=== PATIENT | female | born 1950 | race Caucasian/White ===

== ENCOUNTER 2018-10-19 11:14 | Outpatient (CLI) | payer MEDICARE ==
--- NOTE | 2018-10-19 14:04 | XRAY Report ---
Reason: NEW ONSET AF Procedure Date: 10/19/2018 Accession Number: [id number] / [id number] Procedure: XR - Chest 2 View X-Ray CPT Code: 94666 FULL RESULT: EXAM: CHEST RADIOGRAPHY EXAM DATE: 10/19/2018 12:03 PM. CLINICAL HISTORY: New onset Atrial fibrillation. COMPARISON: None. TECHNIQUE: 2 views. FINDINGS: Lungs/Pleura: There is a 7 x 4.5 x 3.6 cm right upper perihilar/paramediastinal mass. There is a well-circumscribed 16 mm pulmonary nodule in the right lung base. No confluent airspace opacities. No effusion or extra ventilatory air. Mediastinum: Heart size is within normal limits. Increased density in the pericarinal tissues with possible waist-like thinning of the mainstem bronchi bilaterally on the frontal projection, suspicious for adenopathy. Other: No acute osseous abnormalities. IMPRESSION: 1. 7 cm right upper lobe paramediastinal mass with possible associated adenopathy in the low paratracheal and subcarinal regions suspicious for primary malignancy. 2. 16 mm well-circumscribed nodule right lung base; possible metastasis. RADIA The above findings were discussed with James Garcia by Dr. Basilio Dimas at 13:53 hrs on 10/19/18.
== END 2018-10-19 11:15 | disposition home or self-care (01) ==
LOC: DI 11:14
PROVIDERS: ATTEND Internal Medicine
DX: I48.91 Unspecified atrial fibrillation (principal); R91.8 Other nonspecific abnormal finding of lung field; I51.7 Cardiomegaly; I34.0 Nonrheumatic mitral (valve) insufficiency
CPT/HCPCS: 71046; 93306

== ENCOUNTER 2018-10-30 10:47 | Outpatient (CLI) | payer MEDICARE ==
[2018-10-30] MEDS ORDERED: IOVERSOL 320 100 ML VIAL IVP ONE (11:08)
[2018-10-30] MEDS: IOVERSOL 320 100 ML VIAL IVP ONE (11:22)
--- NOTE | 2018-10-30 14:48 | CT Report ---
Reason: R UPPER LUNG MASS ON CXR Procedure Date: 10/30/2018 Accession Number: [id number] / [id number] Procedure: CT - Chest W/ CPT Code: FULL RESULT: EXAM: CT CHEST EXAM DATE: 10/30/2018 11:32 AM. CLINICAL HISTORY: Right upper lung mass on chest x-ray. COMPARISONS: CHEST 2 VIEW 10/19/2018 11:58 AM. TECHNIQUE: Routine helical CT imaging was performed through the chest. IV contrast: 80 mL Optiray 320. Reconstructions: Coronal and sagittal. In accordance with CT protocol optimization, one or more of the following dose reduction techniques were utilized for this exam: automated exposure control, adjustment of mA and/or KV based on patient size, or use of iterative reconstructive technique. FINDINGS: Lungs/Pleura: There is a 5.1 x 4.8 cm perihilar right upper lobe mass with postobstructive changes. There is no pleural effusion or pneumothorax on either side. Separately, there is a right lower lobe nodule which measures 1.4 x 1.4 cm and demonstrates well-circumscribed gently lobulated margins with a suggestion of intralesional fat. While not definite in the setting of a suspicious right upper lobe mass, this possibly represents a hamartoma. No pleural effusion or pneumothorax. No suspicious left lung nodules. Mediastinum: There is subcarinal lymphadenopathy to 2.6 cm as well as ipsilateral right perihilar lymphadenopathy with individual nodes measuring up to 2.6 cm. The lymphadenopathy appears to be encasing branches of the right pulmonary artery. Suspicious nodes measuring up to 1.4 cm also seen in the superior mediastinum, for example image 15 series 4. No left hilar lymphadenopathy. Bones: Unremarkable. Visualized Abdomen: Unremarkable. Other: None. IMPRESSION: 5.1 cm right upper lobe perihilar mass with ipsilateral hilar and mediastinal lymphadenopathy as described. Recommend separate biopsy versus PET determination of the right lower lobe nodule to guide accurate staging in this setting. RADIA
== END 2018-10-30 10:48 | disposition home or self-care (01) ==
LOC: DI 10:47
PROVIDERS: ATTEND Internal Medicine
DX: R91.8 Other nonspecific abnormal finding of lung field (principal); R59.0 Localized enlarged lymph nodes
CPT/HCPCS: 71260; Q9967

== ENCOUNTER 2018-12-06 11:47 | Outpatient (CLI) | payer MEDICARE ==
[2018-12-06] MEDS ORDERED: GADOBUTROL 10 MMOL/10 ML VIAL ONE (12:33)
[2018-12-06] MEDS ORDERED: GADOBUTROL 10 MMOL/10 ML VIAL IVP ONE ×2 (12:55)
--- NOTE | 2018-12-06 15:15 | MRI Report ---
Reason: MALIGNANT NEOPLASM OF UPPER LOBE OF RIGHT LUNG Procedure Date: 12/06/2018 Accession Number: [id number] / [id number] Procedure: MRI - Brain W/WO CPT Code: FULL RESULT: EXAM: MRI BRAIN WITHOUT AND WITH CONTRAST EXAM DATE: 12/06/2018 01:49 PM. CLINICAL HISTORY: Lung cancer, staging, evaluate for brain metastasis. COMPARISON: None. TECHNIQUE: Multiplanar, multisequence T1-weighted and fluid-sensitive MR sequences of the brain were performed. Sequences optimized for routine evaluation. Other: None. IV Contrast: 9 mL Gadavist. FINDINGS: Solitary 1 cm in diameter peripherally enhancing nodule at the perdue-white junction in the left lateral parietal lobe accompanied by moderate vasogenic edema. No other evidence for acute abnormality or abnormal intracranial enhancement. No acute stroke or hemorrhage. No hydrocephalus or midline shift. Contrast opacification of the major dural venous sinuses is present as expected. The major arterial skull base flow voids are present. Minimal nonspecific paranasal sinus mucosal thickening. Clear mastoids. No focal pathologic appearing marrow signal changes in the skull or clivus. IMPRESSION: Findings are consistent with solitary 1 cm metastatic nodule at the periphery of the lateral left parietal lobe with moderate vasogenic edema. RADIA The call report notification system was initiated by Dr. Tom Morataya at 02:40 PM on 12/06/2018. The above findings were discussed with TIBURCIO Amador by Dr. Tom Morataya at 03:14 PM on 12/06/2018.
== END 2018-12-06 11:48 | disposition home or self-care (01) ==
LOC: DI 11:47
PROVIDERS: ATTEND Surgery
DX: C34.11 Malignant neoplasm of upper lobe, right bronchus or lung (principal); C79.31 Secondary malignant neoplasm of brain
CPT/HCPCS: 70553; A9585

== ENCOUNTER 2019-01-26 13:52 | Outpatient (CLI) | payer MEDICARE ==
--- NOTE | 2019-01-26 16:03 | XRAY Report ---
Reason: ATRIAL FIBRILLATION,STAGE IV ADENOCARCINOMA OF GEORGE Procedure Date: 01/26/2019 Accession Number: [id number] / [id number] Procedure: XR - Chest 2 View X-Ray CPT Code: 88062 FULL RESULT: EXAM: CHEST RADIOGRAPHY EXAM DATE: 01/26/2019 02:00 PM. CLINICAL HISTORY: ATRIAL Fibrillation, stage IV ADENOCARCINOMA OF GEORGE. COMPARISON: CHEST 2 VIEW 10/19/2018 11:58 AM. TECHNIQUE: 2 views. FINDINGS: Lungs/Pleura: Markedly increased size of large right suprahilar mass obscuring the hilum and narrowing the right mainstem bronchus, with dense congestive infiltrate extending to the apex. Right hilar fullness has increased, with congestion in the right lower lung and collapse of the right middle lobe. Previously noted nodule is partially obscured. Small right effusion. No pneumothorax. Numerous small nodules now visible in the left mid and upper lung. No left effusion. Mediastinum: Mild to moderate cardiomegaly, probably unchanged. Upper lobe vessels not distended. Other: None. IMPRESSION: Markedly increased right lung mass with associated changes including right middle lobe collapse, hilar congestion, mediastinal lymphadenopathy, and multiple contralateral metastatic nodules. RADIA
== END 2019-01-26 13:53 | disposition home or self-care (01) ==
LOC: DI 13:52
PROVIDERS: ATTEND Internal Medicine Gastroenterology
DX: C34.91 Malignant neoplasm of unspecified part of right bronchus or lung (principal); I48.91 Unspecified atrial fibrillation
CPT/HCPCS: 71046; 93005

== ENCOUNTER 2019-01-29 10:03 | Inpatient (IN) | payer MEDICARE, MEDICAID ==
--- NOTE | 2019-01-29 09:13 | ANESTHESIA ---
Pre-Anesthesia VS, & Labs <Micheal Varela - Last Filed: 01/29/19 09:11> - NPO >8 hours - Is Patient ?: No <Judy Sheikh - Last Filed: 01/29/19 10:55> - Diagnosis Left femoral hernia (Micheal Varela) Left femoral hernia (Judy Sheikh) - Procedure Lap femoral hernia repair (Micheal Varela) Lap femoral hernia repair (Judy Sheikh) Vital Signs: Temp Pulse Resp BP Pulse Ox 36.8 C 56 L 20 100/74 95 01/29/19 10:14 01/29/19 10:14 01/29/19 10:14 01/29/19 10:14 01/29/19 10:14 Height 5 ft 9 in Body Mass Index 25.1 Home Medications and Allergies <Micheal Varela - Last Filed: 01/29/19 09:11> <Judy Sheikh - Last Filed: 01/29/19 10:55> Metoprolol Tartrate 25 mg PO DAILY 01/23/19 LORazepam [Lorazepam] 0.5 mg PO Q6H PRN 01/25/19 Ondansetron HCl [Zofran] 4 mg PO Q4H PRN 01/25/19 Allergies/Adverse Reactions: Allergies Allergy/AdvReac Type Severity Reaction Status Date / Time No Known Drug Allergies Allergy Verified 01/23/19 13:05 Anes History & Medical History - Medical History Cardiovascular: reports: Atrial fibrillation Pulmonary: reports: Shortness of breath, Other Gastrointestinal: reports: None Urinary: reports: None Musculoskeletal: reports: Fatigue Endocrine/Autoimmune: reports: None Skin: reports: None <Micheal Varela - Last Filed: 01/29/19 09:11> - Anesthetic History Anesthesia Complications: reports: No previous complications (no past GA's) Family history of Anesthesia Complications: Denies Family history of Malignant Hyperthermia: Denies - Medical History Cardiovascular: reports: Atrial fibrillation, Other (Echo 40% EF) Pulmonary: reports: Shortness of breath Gastrointestinal: reports: None Musculoskeletal: reports: Fatigue Smoking Status: Former smoker <Judy Sheikh - Last Filed: 01/29/19 10:55> Exam General: Alert Dental: WNL Mouth Opening: Greater than 4 Fingerbreadths Mallampati classification: II Thyromental Distance: greater than 6 cm Respiratory: Other (diminished on right) Cardiovascular: Normal S1, Normal S2 <Judy Sheikh E - Last Filed: 01/29/19 10:55> Plan Anesthesia Type: MAC Consent for Procedure(s) Verified and Reviewed: Yes Code Status: Attempt Resuscitation ASA classification: 3-Severe systemic disease Is this case an emergency?: No <Judy Sheikh - Last Filed: 01/29/19 10:55>
[~2019-01-29 10:03] MED LIST: LIDOCAINE 1% 50 ML MDV ONE; ceFAZolin 1 GM VIAL ONE
[2019-01-29] MEDS ORDERED: ceFAZolin 2 GM/50 ML 2 GM/50 ML BAG IV ONE (10:13)
[2019-01-29] MEDS ORDERED: LACTATED RINGERS 1,000 ML IV ONE (10:40)
[2019-01-29] MEDS ORDERED: LIDOCAINE 1% 50 ML MDV SUBQ ONE (12:19)
[2019-01-29] MEDS ORDERED: ceFAZolin 1 GM VIAL IR ONE (12:19)
[2019-01-29] MEDS ORDERED: PROPOFOL 200 MG/20 ML VIAL IVP ONE (12:30)
[2019-01-29] MEDS ORDERED: MIDAZOLAM 2 MG/2 ML VIAL IVP ONE (12:30)
[2019-01-29] MEDS ORDERED: ESMOLOL 100 MG/10 ML VIAL IVP ONE (12:30)
[2019-01-29] MEDS ORDERED: fentaNYL 100 MCG/2 ML VIAL IVP ONE (12:30)
[2019-01-29] MEDS ORDERED: MORPHINE 10 MG/ML VIAL IVP ONE (12:30)
[2019-01-29] MEDS ORDERED: LIDOCAINE-MPF 2% 5 ML VIAL IM ONE (12:30)
[2019-01-29] MEDS ORDERED: oxyCODONE 5 MG TABLET PO PRN (13:03)
[2019-01-29] MEDS ORDERED: ACETAMINOPHEN 325 MG TABLET PO PRN (13:03)
[2019-01-29] MEDS ORDERED: ONDANSETRON 4 MG/2 ML VIAL IVP PRN ×2 (13:03→14:03)
[2019-01-29] MEDS ORDERED: IBUPROFEN 600 MG TABLET PO PRN (13:03)
--- NOTE | 2019-01-29 13:58 | MISCELLANEOUS PROVIDER NOTE ---
Miscellaneous Provider Note - - Note: Consultation report PCP and Shannan Requesting physician: Dr. Jorgito Lopez surgery service Reason for consultation: CYNTHIA drummond new onset HPI: This is a pleasant 68-year-old female with a history of metastatic lung adenocarcinoma PD-L1 expression high involving her right upper lung with intrathoracic lymph nodes, brain, neck lymph nodes, bilateral pulmonary nodules, pelvic bones, right inguinal lymph nodes with pericardial effusion with a most recent MRI on 12/06/18 showing a 1 cm nodule at the great white junction left lateral parietal lobe accompanying with moderate vasogenic acidemia, former smoker who quit 12 years ago, here for the placement of a Pleurx
--- NOTE | 2019-01-29 14:07 | XRAY Report ---
Reason: s/p port placement Procedure Date: 01/29/2019 Accession Number: [id number] / [id number] Procedure: XR - Chest 1 View X-Ray CPT Code: 18214 FULL RESULT: EXAM: CHEST RADIOGRAPHY EXAM DATE: 01/29/2019 01:47 PM. CLINICAL HISTORY: S/p port placement. COMPARISON: CHEST 2 VIEW 01/26/2019 1:54 PM. TECHNIQUE: 1 view. FINDINGS: Lungs/Pleura: Continued loss of aeration in the right upper lobe. Increased congestion in the remaining aerated lower lobe. Numerous left lung nodules. No definite effusion. No pneumothorax. Mediastinum: Overall heart size unchanged. Other: Left Port-A-Cath tip in upper SVC about 3.0 cm above the level of ismael. IMPRESSION: Left Port-A-Cath tip in upper SVC. RADIA
--- NOTE | 2019-01-29 14:21 | HISTORY & PHYSICAL EXAMINATION ---
Chief Complaint - Chief Complaint Chief Complaint: RVR atrial fibrillation History of Present Illness - Admitted From Admitted From:: PACU - History Obtained From Records Reviewed: Yes History obtained from: Patient, Dr Lopez and Staff Exam Limitations: None - History of Present Illness HPI Comment/Other: This is a pleasant 68-year-old female with a history of atrial fibrillation, Anxiety/depression, metastatic lung adenocarcinoma PD-L1 expression high involving her right upper lung with intrathoracic lymph nodes, brain, neck lymph nodes, bilateral pulmonary nodules, pelvic bones, right inguinal lymph nodes with pericardial effusion with a most recent MRI on 12/06/18 showing a 1 cm nodule at the jackson-white junction left lateral parietal lobe accompanying with moderate vasogenic edema, former smoker who quit 12 years ago, here for the placement of a Port-A-Cath for chemotherapy. Patient sees Dr. Quiñones who is her primary casting coordinator oncologist and last seen was 01/23/19 who at that point reported productive cough at night with episodes of nausea and insomnia. Patient has been taking her Combivent and guaifenesin with codeine and has had some increased memory loss and disorientation with her hands dysfunction. She has had no mention of seizures or headaches and has a poor appetite with some failure to thrive due to sometimes food not smelling good to her. She had her chemo teaching with Ros[facility]i on 01/11/19. She was scheduled to have Keytruda on 01/23/19. Patient developed RVR A. fib with a history of underlying atrial fibrillation. Prior echocardiogram dated 10/19/18 showed a 40-45% ejection fraction at that time was in atrial fibrillation as well with mild global hypokinesis to the left ventricle contractility with mild AV S and mild MR. Patient was given metoprolol 5 mg with resulting hypotension to 85/55 and heart rate being at 135 bpm and RVR A. fib RR of 23 and breathing at 94% O2 saturation room air. Patient will be admitted to ICU due to her CODE STATUS being full and will be given a digoxin load 50% initial dose as then subsequent doses 25% x2 every 6 hours. Patient takes metoprolol for her chronic atrial fibrillation. Patient has had increased confusion as per and has an appointment to see Dr. Alvarado who was referred by Dr. Quiñones for radiation oncology for possible XRT to the 1 cm nodule at the perdue-white junction left lateral parietal lobe accompanying with moderate vasogenic lobe edema seen on MRI dated 12/06/18. Patient will be admitted to ICU at this time. History - Past Medical History Cardiovascular: reports: Atrial fibrillation, Other (Echo 40% EF) Respiratory: reports: Shortness of breath Endocrine/Autoimmune: reports: None GI: reports: None : reports: None HEENT: reports: None Psych: reports: Depression, Anxiety Musculoskeletal: reports: Fatigue Derm: reports: None MRSA Hx?: No Meds/Allgy - Home Medications Home Medications: Ambulatory Orders Medication Instructions Recorded Confirmed Metoprolol Tartrate 25 mg PO DAILY 01/23/19 01/29/19 LORazepam [Lorazepam] 0.5 mg PO Q6H PRN 01/25/19 01/29/19 Ondansetron HCl [Zofran] 4 mg PO Q4H PRN 01/25/19 01/26/19 Ipratropium/Albuterol [Combivent 1 puffs INH QID 01/29/19 01/29/19 Respimat] oxyCODONE [Roxicodone] 5 mg PO Q6H PRN #5 tablet 01/29/19 - Allergies Allergies/Adverse Reactions: Allergies Allergy/AdvReac Type Severity Reaction Status Date / Time No Known Drug Allergies Allergy Verified 01/23/19 13:05 Review of Systems - All Other Systems All Other Systems: reports: Reviewed and negative Prior Level of Functionality: Pt is independent with home ADLs Exam - Vital Signs Vital Signs: Vital Signs x48h Temp Pulse Resp BP Pulse Ox 01/29/19 14:05 143 H 23 97/74 94 01/29/19 13:55 37.2 C 146 H 21 104/73 95 01/29/19 13:45 135 H 23 85/55 L 94 01/29/19 13:35 37.4 C 126 H 24 103/87 H 96 01/29/19 13:25 141 H 16 95/82 H 95 01/29/19 13:20 37.6 C H 136 H 20 113/75 94 01/29/19 13:15 166 H 20 114/89 H 98 01/29/19 13:05 159 H 26 H 113/71 96 01/29/19 13:03 37.6 C H 169 H 25 H 102/86 H 96 01/29/19 10:14 36.8 C 56 L 20 100/74 95 Sepsis Event Note (H) - Evaluation Current Stage of Sepsis: Ruled out Conclusion/Plan - Problem List (1) Metastatic adenocarcinoma Conclusion/Plan: Patient with metastatic lung adenocarcinoma PD-L1 expression high involving her right upper lung with intrathoracic lymph nodes, brain, neck lymph nodes, bilateral pulmonary nodules, pelvic bones, right inguinal lymph nodes with pericardial effusion with a most recent MRI on 12/06/18 showing a 1 cm nodule at the jackson-white junction left lateral parietal lobe accompanying with moderate vasogenic edema, s/p Initiation of Keytruda with status post Port-A-Cath today, Chest x-ray today shows a left Port-A-Cath tip in the upper SVC about 3.0 cm above the level of the ismael with multiple numerous left lung nodules with no definitive pneumothorax seen; likely will need radiation oncology for which she has an appointment on 02/06/[address] Alvarado as a referral from her primary oncologist Dr. Quiñones. (2) Vasogenic brain edema Conclusion/Plan: Patient with a 1 cm nodule at the perdue white matter junction to the left lateral parietal lobe accompanying with moderate vasogenic neck lobe edema will likely require Decadron to decrease edema and lower seizure threshold. A repeat MRI will likely need to be done however no MRI is available until , 02/01/19. 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 Quiñones's last note. We will treat with Decadron for now. Poor prognosis. (4) Atrial fibrillation with RVR Conclusion/Plan: Patient has underlying chronic atrial fibrillation for which she takes metoprolol however IV Lopressor with blood pressures not tolerating either a beta-karon or likely calcium channel karon will switch to digoxin with a 50% initial dose to be given and then followed by 25% dose x2 spreadout every 6 hours apart. Will then perhaps place back on oral metropolol tomorrow am. We will obtain an echocardiogram as prior ejection fraction is 40-45% however left ventricular dysfunction likely as a result of patient being in atrial fibrillation back on 10/19/18. Patient did have mild global hypokinesis to the left ventricle with mild AVS and MR. CHADSVASc score was calculated at four- points, 4.8 stroke risk with a HAS-BLED of 2 points showing a moderate risk for bleeding and will defer off a and NOAC and placed on aspirin only due to patient's existing brain edema with a 1 cm nodule at the perdue-white junction which would likely precipitate an IC bleed. (5) Failure to thrive syndrome, adult Conclusion/Plan: We will increase caloric intake likely as a result of patient being on Keytruda along with her existing metastatic process. May consider placing on Megace plus or minus Remeron. (6) Encephalopathy Conclusion/Plan: Intermittent confusion as this relates to patient's vasogenic edema seen on MRI with a 1 cm nodule at the left lateral parietal lobe will be on Decadron. Continue following clinically. Patient as at risk for seizures. (7) Pericardial effusion Conclusion/Plan: Patient's echocardiogram shows a 1.5 cm pericardial effusion that may be malignant however this is not tappable and likely would not received per icardiocentesis may require outpatient interventional radiology. This is not a pericardial fat-pad as indicated by atm technician. (8) Hyponatremia Conclusion/Plan: Patient was hypotensive as a result of Lopressor but appears to be euvolemic unclear if this may have SIADH implications due to metastatic spread or process. (9) Leukocytosis Conclusion/Plan: Could be reactive or due to metastatic process. Will start Decadron and this would further confound. Qualifiers: Leukocytosis type: unspecified Qualified Code(s): D72.829 - Elevated white blood cell count, unspecified (10) Advanced care planning/counseling discussion Conclusion/Plan: Patient had advance care planning and counseling discussion with POLST updated as she is a DNR with medical condition and plan of care reviewed along with disease management and trajectory of illness. - Lab Results Lab results reviewed: Yes Robert Bones: 01/29/19 15:55 01/29/19 15:55 - Diagnostic Imaging Results Diagnostic Imaging Results: positive: Final report reviewed (Chest x-ray shows Port-A-Cath plcmt with no pneumothorax numerous pulmonary nodules.) - EKG Results EKG Interpreted Independently: Yes - Other Other Results/Comments: Total critical CARE time: 35 minutes Core Measures - Anticipated LOS I expect patient to be DC'd or transferred within 96 hours.: Yes - Issues Hospital Issues and Management Plan: IV digoxin to be converted to oral digoxin. Decadron, medical management, chemotherapy as an outpatient status post Port-A-Cath placement. - DVT/VTE - Prophylaxis VTE/DVT Device ordered at admit?: Yes
--- NOTE | 2019-01-29 14:34 | PROCEDURE REPORT ---
DATE OF SERVICE: 01/29/2019 Physician: Jorgito Lopez MD PREOPERATIVE DIAGNOSIS: Stage IV lung cancer. POSTOPERATIVE DIAGNOSIS: Stage IV lung cancer. PROCEDURE PERFORMED: Placement of a PowerPort. ANESTHESIA: General LMA by Micheal Varela CRNA SURGEON: Jorgito Lopez MD. ESTIMATED BLOOD LOSS: 20 mL. COMPLICATIONS: None. FINDINGS: [place] was placed in the left infraclavicular fossa. This was a standard profile singl e-lumen PowerPort. The 8-Turkmen catheter distal tip was located in the region of superior vena cava. An infraclavicular approach was used. INDICATIONS: Patient is a 68-year-old woman with a recent diagnosis of stage IV lung cancer. She wa s advised to undergo placement of a PowerPort to facilitate further therapy. TECHNIQUE: After informed consent, patient was taken to the operating room where she was placed unde r general LMA by Micheal Varela CRNA. Preoperative preparation with administration of 2 grams of cefazolin intravenously within an hour of the incision and application of sequential calf compression boots. Her anterior chest wall and neck were prepared with ChloraPrep solution and draped in the [facility] sterile fashion. One percent lidocaine plain was used for local infiltration anesthesia, approxi mately 10 mL was used. Patient was placed in steep Trendelenburg position. Needle and syringe were used to access the left subclavian vein via an infraclavicular approach. A g uidewire was then passed through the needle into the central venous circulation. Guidewire location was confirmed with fluoroscopy. The guidewire tract was then dilated, following which an 8-Turkmen Si lastic catheter was then passed through the breakaway sheath into the central venous circulation and its tip position in the superior vena cava with fluoroscopy. Patient was taken out of Trendelenburg position. An incision was made approximately 3 cm in length extending medially from the catheter exi t site in the left infraclavicular fossa. Hemostasis achieved with electrocautery. A subcutaneous p ocket was created sufficient size to allow placement of the reservoir. After hemostasis was assured, the cavity was irrigated with antibiotic solution containing 1 gram of Ancef per liter. The reservoir, which had been flushed with sterile saline, was then brought onto the field. The cath eter was trimmed to appropriate length. The locking device was placed over the catheter, which was t hen attached to the hub of the reservoir, and the locking device used to securely attach the catheter to the reservoir hub. The reservoir was then placed in the pocket and secured in place with two 4-0 nylon sutures to the pectoral fascia. Care was taken to avoid excessive kinking of the catheter in the subcutaneous pocket. After hemostasis was assured, the wound was irrigated with antibiotic solut ion, following which wound closure was accomplished in layers using continuous 3-0 Vicryl reapproxima ting subcutaneous tissues and 4-0 Monocryl subcuticular skin closure, followed by Dermabond. The reservoir was then accessed percutaneously with a [place] needle and was seen to aspirate blood eas evette and was flushed with sterile saline. Anesthesia was terminated and patient transferred to the re covery room in satisfactory condition. Sponge and needle counts were correct x2 and no drains were u sed. A followup chest x-ray is pending. TD: 01/29/2019 13:27
[2019-01-29] MEDS: LACTATED RINGERS 1,000 ML IV SCH ×2 (15:51→21:28)
[2019-01-29] MEDS: SODIUM CHLORIDE FLUSH 0.9% 10 ML SYRINGE IVP SCH ×2 (15:52→21:29)
[2019-01-29] MEDS ORDERED: DIGOXIN 500 MCG/2 ML AMP IVP SCH (16:00)
[2019-01-29 16:05] LABS: BASOPHILS % (AUTO) 0.5 %; EOSINOPHILS % (AUTO) 10.4 %; HGB - HEMOGLOBIN 11.4 g/dL (12.0-16.0); LYMPHOCYTES % (AUTO) 5.9 %; MEAN CORPUSCULAR HEMOGLOBIN 27.3 pg (27.0-31.0); MEAN CORPUSCULAR HGB CONC 32.9 g/dL (32.0-36.0); MEAN CORPUSCULAR VOLUME 82.9 fL (81.0-99.0); MEAN PLATELET VOLUME 7.6 fL (7.9-10.8); MONOCYTES % (AUTO) 6.3 %; NEUTROPHILS % (AUTO) 76.9 %; PLT - PLATELET COUNT 414 10^3/uL (130-450); RED BLOOD COUNT 4.17 10^6/uL (4.20-5.40); RED CELL DISTRIBUTION WIDTH 14.5 % (12.0-15.0); WHITE BLOOD COUNT 15.5 x10^3/uL (4.8-10.8)
[2019-01-29 16:08] LABS: ABNORMAL LYMPHS % (MANUAL) 0 %
[2019-01-29 16:35] LABS: BAND NEUTROPHILS % (MANUAL) 5 %; BASOPHILS # (MANUAL) 0.2 10^3/uL (0-0.1); BASOPHILS % (MANUAL) 1 %; EOSINOPHILS # (MANUAL) 2.6 10^3/uL (0-0.7); LYMPHOCYTES # (MANUAL) 1.1 10^3/uL (1.5-3.5); LYMPHOCYTES % (MANUAL) 7 %; MONOCYTES # (MANUAL) 0.5 10^3/uL (0.0-1.0); NEUTROPHILS # (MANUAL) 11.2 10^3/uL (1.5-6.6); NEUTROPHILS % (MANUAL) 67 %
[2019-01-29 16:36] LABS: DIFFERENTIAL COMMENT MANUAL DIFFERENTIAL; PLATELET ESTIMATE, MANUAL NORMAL (130-450,000) (NORMAL); PLATELET MORPHOLOGY NORMAL APPEARANCE (NORMAL); RBC MORPHOLOGY (MULTIPLE) NORMAL APPEARANCE (NORMAL)
[2019-01-29 16:55] LABS: ALBUMIN 2.8 g/dL (3.2-5.5); CALCIUM 8.4 mg/dL (8.5-10.3); CREATININE 0.6 mg/dL (0.4-1.0); PHOSPHORUS 3.9 mg/dL (2.5-4.6)
[2019-01-29] MEDS: DEXAMETHASONE 10 MG/ML VIAL IVP SCH (17:02)
[2019-01-29] MEDS: SODIUM CHLORIDE FLUSH 0.9% 10 ML SYRINGE IVP PRN (17:02)
[2019-01-29] MEDS: LORazepam 0.5 MG TABLET SL PRN (17:57)
[2019-01-29] MEDS ORDERED: LEVALBUTEROL 1.25 MG/3 ML NEB INH PRN (19:20)
[2019-01-29] MEDS: FAMOTIDINE 20 MG TABLET PO SCH (20:54)
[2019-01-29] MEDS: DIGOXIN 500 MCG/2 ML AMP IVP SCH (21:28)
[2019-01-29] MEDS: traZODone 50 MG TABLET PO SCH (23:43)
[2019-01-30] MEDS: LORazepam 0.5 MG TABLET SL PRN ×2 (00:59→15:12)
[2019-01-30] MEDS: DIGOXIN 500 MCG/2 ML AMP IVP SCH (04:20)
[2019-01-30] MEDS: SODIUM CHLORIDE FLUSH 0.9% 10 ML SYRINGE IVP PRN (04:21)
[2019-01-30 05:20] LABS: BASOPHILS % (AUTO) 0.2 %; EOSINOPHILS # (AUTO) 0.1 10^3/uL (0.0-0.7); LYMPHOCYTES # (AUTO) 0.5 10^3/uL (1.5-3.5); LYMPHOCYTES % (AUTO) 4.8 %; MEAN CORPUSCULAR HEMOGLOBIN 27.9 pg (27.0-31.0); MEAN CORPUSCULAR HGB CONC 33.7 g/dL (32.0-36.0); MEAN CORPUSCULAR VOLUME 82.8 fL (81.0-99.0); MEAN PLATELET VOLUME 7.6 fL (7.9-10.8); MONOCYTES # (AUTO) 0.2 10^3/uL (0.0-1.0); MONOCYTES % (AUTO) 1.7 %; NEUTROPHILS # (AUTO) 10.5 10^3/uL (1.5-6.6); NEUTROPHILS % (AUTO) 92.3 %; PLT - PLATELET COUNT 370 10^3/uL (130-450); RED BLOOD COUNT 3.95 10^6/uL (4.20-5.40); WHITE BLOOD COUNT 11.4 x10^3/uL (4.8-10.8)
[2019-01-30 05:32] LABS: ALBUMIN 2.6 g/dL (3.2-5.5); ALBUMIN/GLOBULIN RATIO 0.7 (1.0-2.2); BILIRUBIN,TOTAL 0.4 mg/dL (0.2-1.0); CALCIUM 8.4 mg/dL (8.5-10.3); CREATININE 0.4 mg/dL (0.4-1.0); TOTAL PROTEIN 6.1 g/dL (6.7-8.2)
[2019-01-30] MEDS: LACTATED RINGERS 1,000 ML IV SCH (06:52)
[2019-01-30] MEDS: FAMOTIDINE 20 MG TABLET PO SCH ×2 (08:55→20:33)
[2019-01-30] MEDS: SODIUM CHLORIDE FLUSH 0.9% 10 ML SYRINGE IVP SCH ×3 (08:55→18:18)
[2019-01-30] MEDS: ASPIRIN CHEW 81 MG TABLET PO SCH (08:55)
[2019-01-30] MEDS: DEXAMETHASONE 10 MG/ML VIAL IVP SCH (08:56)
[2019-01-30] MEDS ORDERED: METOPROLOL TARTRATE 25 MG TABLET PO SCH ×2 (09:00→21:00)
[2019-01-30] MEDS ORDERED: DIGOXIN 125 MCG TABLET PO SCH (09:00)
[2019-01-30] MEDS: FUROSEMIDE 20 MG/2 ML VIAL IVP SCH (10:33)
--- NOTE | 2019-01-30 12:26 | MISCELLANEOUS PROVIDER NOTE ---
Miscellaneous Provider Note - - Note: Subjective: Patient feels great and denies palpitations chest pain nausea vomiting headaches dizziness syncopal events GI or symptoms. Patient says that she is felt better today than in most days. Objective: Vital signs are Hemodynamically stable heart rate variable from 90- 132 bpm. Afebrile. Respiratory rate 28. 94% O2 saturation on room air. Blood pressure 124/87. General: Patient alert and oriented x3 in no acute respiratory distress speaking full sentences. Malnourished. Thin and frail. Cooperative and pleasant. HEENT: Pupils equal round react light and accommodation extraocular muscles are bilateral intact. NCAT. No ptosis. No buccal lesions. Oropharynx clear. Neck: No JVD no bruits no lymphadenopathy. No thyromegaly. CV/lungs: Irregular rate and rhythm. No murmurs gallops clicks or rubs. CT BL. Abdomen: Soft nontender nondistended positive bowel sounds all quadrants no HSM. No bruits. No masses. Next para if extremities/skin: No edema, clubbing, or cyanosis. 2+ pulses dorsalis pedis bilaterally. Neuro: Grossly intact Labs: Reviewed Imaging studies: Reviewed Assessment/plan: (1) Metastatic adenocarcinoma Conclusion/Plan: Patient with metastatic lung adenocarcinoma PD-L1 expression high involving her right upper lung with intrathoracic lymph nodes, brain, neck lymph nodes, bilateral pulmonary nodules, pelvic bones, right inguinal lymph nodes with pericardial effusion with a most recent MRI on 12/06/18 showing a 1 cm nodule at the jackson-white junction left lateral parietal lobe accompanying with moderate vasogenic edema, s/p Initiation of Keytruda with status post Port-A-Cath On 01/29, Chest x-ray shows a left Port-A-Cath tip in the upper SVC about 3.0 cm above the level of the ismael with multiple numerous left lung nodules with no definitive pneumothorax seen; likely will need radiation oncology for which she has an appointment on 02/06/[address] Alvarado as a referral from her primary oncologist Dr. Quiñones. Patient likely will continue with palliative chemoradiation as an outpatient. Currently no signs and symptoms of infection or neutropenic fever. Patient's pericardial effusion may be malignant however no hemodynamic instability or pericardial tamponade which would not require an urgent pericardiocentesis however this may be tapped as an outpatient by interventional radiology if need be. (2) Vasogenic brain edema Conclusion/Plan: Patient with a 1 cm nodule at the perdue white matter junction to the left lateral parietal lobe accompanying with moderate vasogenic edema. We will continue with Decadron to decrease edema and lower seizure threshold. A repeat MRI will likely need to be done however no MRI is available until , 02/01/19. Patient at high risk for seizures. 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 Quiñones's last note. We will treat with Decadron for now. Poor prognosis. (4) Atrial fibrillation with RVR Conclusion/Plan: Patient has improved RVR A. fib with variable rates now after being giving a digoxin load. Will continue with digoxin at 250 mcg p.o. daily. However after an attempt to start metoprolol twice daily at 25 mg patient continues to be in RVR A. fib and has not responded well to Cardizem 30 mg p.o. 1 dose, will start diltiazem drip with parameters. Patient is not a candidate for anticoagulation due to Bleeding risk. CHADSVASc score was calculated at four-points, 4.8 stroke risk with a HAS-BLED of 2 points showing a moderate risk for bleeding and will defer off a and NOAC and placed on aspirin only due to patient's existing brain edema with a 1 cm nodule at the perdue-white junction which would likely precipitate an IC bleed. Patient's echocardiogram which was read as an ejection fraction of 35-40% slightly lower from 40-45% on last 2D echo dated 10/19/18. There is a new finding of a 1.2 cm pericardial effusion with no evidence of cardiac tamponade. No motion wall abnormality seen. Patient did have mild global hypokinesis in the left ventricle with mild AVS and MR. (5) Failure to thrive syndrome, adult Conclusion/Plan: We will increase caloric intake likely as a result of patient being on Keytruda along with her existing metastatic process. Patient is eating 75% of meals and will defer off any appetite stimulating agents. (6) Patient meets moderate to severe malnutrition criteria (present on admission). Conclusion/plan: We will continue to optimize medical management as well as nutritional managementWe will continue to optimize medical management as well as nutritional management. We will continue to optimize medical management as well as nutritional management (7) Confusion secondary to brain metastases with associated vasogenic edema Conclusion/Plan: Intermittent confusion as this relates to patient's vasogenic edema seen on MRI with a 1 cm nodule at the left lateral parietal lobe will be on Decadron. Continue following clinically. Patient as at risk for seizures. Patient has improved discoordination of hand as well. (8) Pericardial effusion Conclusion/Plan: Patient's echocardiogram shows a 1.2 cm pericardial effusion that may be malignant however this is not tappable and likely would not received pericardiocentesis. Indications for diagnostic percutaneous CT-guided or echo guided pericardiocentesis would be if moderate to large effusion was symptomatic and there was a Cardiac Tampanode (Either clinically {i.e Hypotension, tachycardia, dyspnea or pulses paradoxus} or echocardiogram confirmed) with associated hemodynamic instability. Patient currently is hemodynamically stable however if this effusion which is new increases over time i.e >20mm then patient may require outpatient interventional radiology. This is not a pericardial fat- pad as indicated by principal technical writer. (9) Leukocytosis Conclusion/Plan: This is improved likely reactive however will likely be altered by steroids. (10) Anxiety. Conclusion/plan: Patient on Lorazepam which will be up titrated to 1 mg sublingual every 6 hours as needed as patient will be on steroids which may cause increased anxiety and insomnia (11) Advanced care planning/counseling discussion Conclusion/Plan: Patient had advance care planning and counseling discussion with POL updated as she is a DNR with medical condition and plan of care reviewed along with disease management and trajectory of illness. Patient is going to be in palliative chemoradiation to continue as outpatient as well.
[2019-01-30] MEDS ORDERED: DIGOXIN 125 MCG TABLET PO ONE (13:00)
[2019-01-30] MEDS ORDERED: diltiaZEM 30 MG TABLET PO SCH (17:00)
[2019-01-30] MEDS ORDERED: METOPROLOL 5 MG/5 ML VIAL IVP PRN (17:48)
[2019-01-30] MEDS ORDERED: diltiaZEM INJ 125 MG in DEXTROSE 5% 100 ML IV SCH (18:00)
[2019-01-30] MEDS ORDERED: LORazepam 1 MG TABLET SL PRN (18:07)
[2019-01-30] MEDS ORDERED: diltiaZEM INJ 5 MG/ML VIAL IVP ONE (18:26)
[2019-01-30] MEDS ORDERED: diltiaZEM INJ 5 MG/ML VIAL ONE (18:35)
[2019-01-30] MEDS: traZODone 50 MG TABLET PO SCH (20:33)
[2019-01-30] MEDS ORDERED: traZODone 50 MG TABLET PO SCH ×2 (21:00→22:45)
[2019-01-31] MEDS: SODIUM CHLORIDE FLUSH 0.9% 10 ML SYRINGE IVP SCH ×3 (01:31→08:30)
[2019-01-31 05:41] LABS: BASOPHILS % (AUTO) 0.2 %; EOSINOPHILS # (AUTO) 0.9 10^3/uL (0.0-0.7); EOSINOPHILS % (AUTO) 5.6 %; HGB - HEMOGLOBIN 11.7 g/dL (12.0-16.0); LYMPHOCYTES # (AUTO) 0.8 10^3/uL (1.5-3.5); LYMPHOCYTES % (AUTO) 5.1 %; MEAN CORPUSCULAR HEMOGLOBIN 27.2 pg (27.0-31.0); MEAN CORPUSCULAR VOLUME 84.8 fL (81.0-99.0); MEAN PLATELET VOLUME 7.7 fL (7.9-10.8); MONOCYTES # (AUTO) 0.8 10^3/uL (0.0-1.0); MONOCYTES % (AUTO) 5.3 %; NEUTROPHILS # (AUTO) 12.8 10^3/uL (1.5-6.6); NEUTROPHILS % (AUTO) 83.8 %; PLT - PLATELET COUNT 406 10^3/uL (130-450); RED CELL DISTRIBUTION WIDTH 15.1 % (12.0-15.0); WHITE BLOOD COUNT 15.3 x10^3/uL (4.8-10.8)
[2019-01-31 05:50] LABS: MAGNESIUM 2.2 mg/dL (1.7-2.8); PHOSPHORUS 3.8 mg/dL (2.5-4.6)
[2019-01-31] MEDS: ASPIRIN CHEW 81 MG TABLET PO SCH (08:20)
[2019-01-31] MEDS: FAMOTIDINE 20 MG TABLET PO SCH (08:21)
[2019-01-31] MEDS: DEXAMETHASONE 10 MG/ML VIAL IVP SCH (08:22)
[2019-01-31] MEDS: FUROSEMIDE 20 MG/2 ML VIAL IVP SCH (08:26)
[2019-01-31] MEDS ORDERED: DIGOXIN 125 MCG TABLET PO SCH (09:00)
[2019-01-31] MEDS ORDERED: POLYETHYLENE GLYCOL 3350 17 GM PACKET PO SCH (09:00)
[2019-01-31] MEDS ORDERED: diltiaZEM CD 180 MG CAPSULE PO SCH (09:00)
[2019-01-31 11:07] VITALS: BP 127/83
[2019-01-31] MEDS ORDERED: WHEAT DEXTRIN POWDER PACKET PO PRN (11:07)
--- NOTE | 2019-01-31 11:15 | Discharge Plan ---
Discharge Plan Disposition: 01 Home, Self Care Condition: Good Prescriptions: LORazepam [Ativan] 1 mg SL Q4HR PRN #60 tablet PRN Reason: anxiety/insomnia Aspirin Chewable [St Denis Aspirin] 81 mg PO DAILY #30 tablet Dexamethasone [Decadron] 4 mg PO 0800 #30 tablet Digoxin 250 mcg PO DAILY #30 tablet diltiaZEM CD [Cardizem Cd] 180 mg PO BID #60 capsule oxyCODONE [Roxicodone] 5 mg PO Q6H PRN #5 tablet PRN Reason: Pain Diet: Regular Activity Restrictions: Activity as Tolerated Shower Restrictions: No Driving Restrictions: Yes Instruction Topics: Digoxin, Atrial Fibrillation Additional Instructions or Follow Up instructions: Patient will need to follow-up with cardiology Dr. Goldman as a new appointment to evaluate for her asymptomatic variable RVR A. fib which was refractory to pharmacological cardioversion. Follow-up with Dr. Goldman as a new appointment to evaluate for variable asymptomatic RVR A. fib. Instructed to call [phone]. scheduled on 02/22/19. 930am No Smoking: If you smoke, Please STOP! Call for help. Follow-up with: Peggy Campbell MD [Primary Care Provider] - 2 Weeks (Follow-up with PCP in 1-2 weeks) Castillo Goldman MD [Provider Admit Priv/Credential] - 02/22/19 9:30 am (Follow-up with Dr. Goldman as a new appointment to evaluate for variable asymptomatic RVR A. fib. Instructed to call [phone]. scheduled on 02/22/19. 930am)
--- NOTE | 2019-01-31 11:22 | DISCHARGE SUMMARY ---
Discharge Summary Admit Date: 01/29/19 Discharge Date: 01/31/19 Discharging Provider: Dr. Richey Primary Care Provider: Juliann Campbell Code Status: Do Not Attempt Resuscitation Condition at Discharge: Good Discharge Disposition: 01 Home, Self Care - DIAGNOSES Admission Diagnoses: (1) Metastatic adenocarcinoma (2) Vasogenic brain edema (3) Brain metastasis (4) Atrial fibrillation with RVR (5) Failure to thrive syndrome, adult (6) Encephalopathy (7) Pericardial effusion (8) Hyponatremia (9) Leukocytosis (10) Advanced care planning/counseling discussion Discharge Diagnoses with Status of Each Condition: (1) Metastatic adenocarcinoma; Stage IV metastatic adenocarcinoma of the lung, ongoing palliative chemotherapy with eventual radiation. Poor prognosis (2) Vasogenic brain edema, Stable (3) Brain metastasis, Progressive and stable (4) Variable Atrial fibrillation with RVR, Refractory to pharmacological cardio version (5) Failure to thrive syndrome, adult (6) Patient meets moderate to severe malnutrition criteria (present on admission). (7) Confusion secondary to brain metastases with associated vasogenic edema (8) Pericardial effusion (9) Leukocytosis Secondary to steroids (10) Anxiety. (11) Advanced care planning/counseling discussion - HPI History of Present Illness: This is a pleasant 68-year-old female with a history of atrial fibrillation, Anxiety/depression, metastatic lung adenocarcinoma PD-L1 expression high involving her right upper lung with intrathoracic lymph nodes, brain, neck lymph nodes, bilateral pulmonary nodules, pelvic bones, right inguinal lymph nodes with pericardial effusion with a most recent MRI on 12/06/18 showing a 1 cm nodule at the jackson-white junction left lateral parietal lobe accompanying with moderate vasogenic edema, former smoker who quit 12 years ago, here for the placement of a Port-A-Cath for chemotherapy. Patient sees Dr. Quiñones who is her primary molded goods operator oncologist and last seen was 01/23/19 who at that point reported productive cough at night with episodes of nausea and insomnia. Patient has been taking her Combivent and guaifenesin with codeine and has had some increased memory loss and disorientation with her hands dysfunction. She has had no mention of seizures or headaches and has a poor appetite with some failure to thrive due to sometimes food not smelling good to her. She had her chemo teaching with Rosalie on 01/11/19. She was scheduled to have Keytruda on 01/23/19. Patient developed RVR A. fib with a history of underlying atrial fibrillation. Prior echocardiogram dated 10/19/18 showed a 40-45% ejection fraction at that time was in atrial fibrillation as well with mild global hypokinesis to the left ventricle contractility with mild AV S and mild MR. Patient was given metoprolol 5 mg with resulting hypotension to 85/55 and heart rate being at 135 bpm and RVR A. fib RR of 23 and breathing at 94% O2 saturation room air. Patient will be admitted to ICU due to her CODE STATUS being full and will be given a digoxin load 50% initial dose as then subsequent doses 25% x2 every 6 hours. Patient takes metoprolol for her chronic atrial fibrillation. Patient has had increased confusion as per and has an appointment to see Dr. Alvarado who was referred by Dr. Quiñones for radiation oncology for possible XRT to the 1 cm nodule at the perdue-white junction left lateral parietal lobe accompanying with moderate vasogenic lobe edema seen on MRI dated 12/06/18. Patient will be admitted to ICU at this time. - HOSPITAL COURSE Hospital Course: Patient was admitted for RVR atrial fibrillation which was asymptomatic and after Port-A-Cath placement general surgeon Dr. Jorgito Lopez had recommended patient be admitted for pharmacological cardioversion of patient's underlying chronic atrial fibrillation which was now in RVR A. fib in the 120s 130s. Patient denied shortness of breath palpitations syncopal events dizziness or lightheadedness. Patient was otherwise hemodynamically stable. Chest x-ray confirmed Port-A-Cath placement with no pneumothorax and no evidence of pulmonary edema noted. Patient with a prior echocardiogram dated 10/19/18 showed an ejection fraction of 40-45% and at that time patient had atrial fibrillation with mild global hypokinesis to the left ventricle contractility with mild AVS and mild MR. On this admission echocardiogram did show ejection fraction of 35-40% slightly decreased however new finding of a 1.2 cm pericardial effusion was noted. Patient's CODE STATUS was addressed with advance care planning education and counseling and was deemed to be a DNR with limited interventions. Patient was resumed on home medications however diltiazem drip was started for rate and rhythm control however she was refractory to pharmacological cardioversion despite oral metoprolol as well as oral diltiazem. Variable RVR A. fib with still noted however to a lesser degree as patient had heart rate ranging from 70s up to the 90s at rest and on exertion patient would go to 120s-130s while coughing or being on a bedpan. Patient denied fevers chills nausea vomiting abdominal pain or maculopapular rashes. Patient does have existing stage IV adenocarcinoma Of right upper lung with metastatic spread to Intrathoracic lymph nodes, brain (1 cm nodule at the jackson- white matter junction left lateral parietal lobe accompanying with moderate vasogenic edema), bilateral pulmonary nodules, pelvic bones, right inguinal lymph nodes, and with pericardial effusion with most recent MRI on 12/06/18 showing vasogenic edema. Patient's TSH was 1.22 magnesium phosphorus and potassium were all normal. Patient received a digoxin load and continued with a maintenance dose of 250 mcg p.o. daily. Patient had a calculated ChadsVasc score of 4 points and a HAS BLED calculated to be two-point with moderate bleeding therefore not a candidate for anticoagulation due to underlying vasogenic edema with a 1 cm nodule at the great white junction of left lateral parietal lobe. Unfortunately patient was unable to be pharmacologically cardioverted either with oral or IV formulated drugs with calcium channel blockers or beta blockade. Patient does have thromboembolic risks and therefore was placed on aspirin 81 mg p.o. daily only. Patient is completely asymptomatic with no palpitations and again no other neurological deficits, syncope, or dizziness. Patient will be referred to outpatient cardiology with Dr. Goldman for further evaluation management and treatment. Due to patient's risk of vasogenic edema with associated seizures patient will be given an Rx for Decadron as well as Ativan sublingual. In addition patient will be given diltiazem 180 mg to be up titrated to twice daily along with digoxin. Follow-up with Dr. Goldman as a new appointment to evaluate for variable asymptomatic RVR A. fib. Instructed to call [phone]. scheduled on 02/22/19. 930am - ALLERGIES Allergies/Adverse Reactions: Allergies Allergy/AdvReac Type Severity Reaction Status Date / Time No Known Drug Allergies Allergy Verified 01/23/19 13:05 - MEDICATIONS Home Medications: Ambulatory Orders Medication Instructions Recorded Confirmed Ondansetron HCl [Zofran] 4 mg PO Q4H PRN 01/25/19 01/26/19 Ipratropium/Albuterol [Combivent 1 puffs INH QID 01/29/19 01/29/19 Respimat] oxyCODONE [Roxicodone] 5 mg PO Q6H PRN #5 tablet 01/29/19 Aspirin Chewable [St Denis 81 mg PO DAILY #30 tablet 01/31/19 Aspirin] Dexamethasone [Decadron] 4 mg PO 0800 #30 tablet 01/31/19 Digoxin 250 mcg PO DAILY #30 tablet 01/31/19 LORazepam [Ativan] 1 mg SL Q4HR PRN #60 tablet 01/31/19 diltiaZEM CD [Cardizem Cd] 180 mg PO BID #60 capsule 01/31/19 - PHYSICAL EXAM AT DISCHARGE General Appearance: positive: No acute distress, Alert, Anxious Eyes Bilateral: positive: Normal inspection, PERRL, EOMI ENT: positive: ENT inspection nml, Pharynx nml, No signs of dehydration Neck: positive: Nml inspection, Thyroid nml, No JVD, Trachea midline. negative: Thyromegaly Respiratory: positive: Chest non-tender, No respiratory distress, Breath sounds nml Cardiovascular: positive: No murmur, No gallop, Irregularly irregular Peripheral Pulses: positive: 2+ Abdomen: positive: Non-tender, No organomegaly, Nml bowel sounds, No distention. negative: Tenderness Skin: positive: Color nml, No rash, Warm Extremities: positive: Non-tender, Full ROM, Nml appearance Neurologic/Psychiatric: positive: Oriented x3, CN's nml (2-12) - LABS Result Diagrams: 01/31/19 05:00 01/30/19 05:02 - SEPSIS Current Stage of Sepsis: Ruled out - QUALITY (Female Hip Fx Only) Was patient sent home on osteoporosis medication?: No - FOLLOW UP Follow Up: PCP to follow-up in 1-2 weeks - TIME SPENT Time Spent in Discharge (Minutes): 35
[2019-01-31] MEDS ORDERED: MULTIVITAMIN W/MINERALS TABLET PO SCH (12:00)
== END 2019-01-31 12:35 | disposition home or self-care (01) | DRG 308 ==
LOC: SDS 10:03 → ICU 14:03
PROVIDERS: ADMIT Family Medicine; ATTEND Internal Medicine Gastroenterology
PROC: B5181ZA Fluoroscopy of Superior Vena Cava using Low Osmolar Contrast, Guidance (ICD-10-PCS; 2019-01-29)
PROC: 02HV33Z Insertion of Infusion Device into Superior Vena Cava, Percutaneous Approach (ICD-10-PCS; 2019-01-29)
PROC: B5181ZA Fluoroscopy of Superior Vena Cava using Low Osmolar Contrast, Guidance (ICD-10-PCS; 2019-01-29)
PROC: 02HV33Z Insertion of Infusion Device into Superior Vena Cava, Percutaneous Approach (ICD-10-PCS; principal; 2019-01-29 11:30)
DX: I48.2 Chronic atrial fibrillation (principal); G93.6 Cerebral edema; C34.90 Malignant neoplasm of unspecified part of unspecified bronchus or lung; C79.31 Secondary malignant neoplasm of brain; C77.0 Secondary and unspecified malignant neoplasm of lymph nodes of head, face and neck; C77.4 Secondary and unspecified malignant neoplasm of inguinal and lower limb lymph nodes; C77.1 Secondary and unspecified malignant neoplasm of intrathoracic lymph nodes; C79.51 Secondary malignant neoplasm of bone; E44.0 Moderate protein-calorie malnutrition; I31.3 Pericardial effusion (noninflammatory); G93.40 Encephalopathy, unspecified; E87.1 Hypo-osmolality and hyponatremia; Z66 Do not resuscitate; Z92.21 Personal history of antineoplastic chemotherapy; R62.7 Adult failure to thrive; Z68.22 Body mass index [BMI] 22.0-22.9, adult; R41.0 Disorientation, unspecified; D72.829 Elevated white blood cell count, unspecified; T38.0X5A Adverse effect of glucocorticoids and synthetic analogues, initial encounter; F41.9 Anxiety disorder, unspecified; F32.9 Major depressive disorder, single episode, unspecified; Z87.891 Personal history of nicotine dependence
CPT/HCPCS: 36415; 36571; 71045; 77001; 80053; 80069; 82140; 83735; 84100; 84443; 85025; 87150; 93005; 93306; A9270; C1788; J0690; J7120; J8499

== ENCOUNTER 2019-02-01 14:50 | Outpatient (CLI) | payer MEDICARE, MEDICAID ==
[2019-02-01] MEDS ORDERED: GADOBUTROL 10 MMOL/10 ML VIAL IVP ONE ×2 (16:27)
--- NOTE | 2019-02-02 11:42 | MRI Report ---
Reason: METASTATIC LUNG CANCER Procedure Date: 02/01/2019 Accession Number: [id number] / [id number] Procedure: MRI - Brain W/WO CPT Code: FULL RESULT: EXAM: MRI BRAIN WITHOUT AND WITH CONTRAST EXAM DATE: 02/01/2019 04:30 PM. CLINICAL HISTORY: Metastatic lung cancer. COMPARISON: BRAIN W/WO 12/06/2018 12:35 PM. TECHNIQUE: Multiplanar, multisequence T1-weighted and fluid-sensitive MR sequences of the brain were performed. Sequences optimized for routine evaluation. Other: None. IV Contrast: 8 mL of Gadavist. FINDINGS: Brain Volume: There is mild generalized cerebral volume loss, in keeping with the patient's age. Parenchyma: No diffusion restriction is identified to suggest acute or recent infarct. The susceptibility sensitive sequence demonstrates no evidence of acute or chronic hemorrhage. The enhancing intra-axial mass in the left parietal lobe has increased in size now measuring 13 x 16 mm, previously 10 x 9 mm. There is mildly increased surrounding vasogenic edema with greater mass-effect and narrowing of the atrium of the left lateral ventricle. No new intracranial metastases have developed. Ventricles/Cisterns: The ventricles remain midline without evidence of hydrocephalus. No abnormal extra-axial fluid collection or hemorrhage. Orbits: Symmetric and unremarkable. Sella Turcica: The pituitary gland, cavernous sinuses, suprasellar cistern and optic chiasm are unremarkable. IAC: Symmetric and unremarkable. Vasculature: Normal signal flow void is seen in the major arterial structures at the skull base. The dural sinuses are patent and enhance normally. Sinuses: No acute sinus disease. Bones: No focal pathologic appearing marrow signal changes. IMPRESSION: 1. Increased size of the known solitary metastasis in the left parietal lobe compared to the brain MRI from 12/06/2018 now measuring 13 x 16 mm, previously 10 x 9 mm. There is mild increased surrounding vasogenic edema and mass-effect as well. 2. However, no midline shift or hydrocephalus has developed. 3. No new intracranial metastasis is seen. RADIA
== END 2019-02-01 14:51 | disposition home or self-care (01) ==
LOC: DI 14:50
PROVIDERS: ATTEND Internal Medicine Hematology & Oncology
DX: C34.11 Malignant neoplasm of upper lobe, right bronchus or lung (principal); C79.31 Secondary malignant neoplasm of brain
CPT/HCPCS: 70553; A9585

== ENCOUNTER 2019-02-13 16:52 | Outpatient (CLI) | payer MEDICARE, MEDICAID ==
--- NOTE | 2019-02-14 08:00 | XRAY Report ---
Reason: LUNG CA,RIGHT HIP/FEMUR PAIN,BONE MET Procedure Date: 02/13/2019 Accession Number: [id number] / [id number] Procedure: XR - Hip w/Pelvis 2-3V RT CPT Code: FULL RESULT: EXAM: RIGHT HIP RADIOGRAPHY EXAM DATE: 02/13/2019 05:28 PM. CLINICAL HISTORY: Right hip pain. History of lung cancer. COMPARISON: None. TECHNIQUE: 2 views. FINDINGS: Bones: No fracture or bone lesion is identified. Joints: Mild degenerative changes are seen in the hip joints bilaterally. Alignment is preserved. Soft Tissues: Normal. No soft tissue swelling. 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 No fracture or bone lesion identified. RADIA
--- NOTE | 2019-02-14 08:00 | XRAY Report ---
Reason: Lung CA, Right Hip/Femur Pain, Bone mets Procedure Date: 02/13/2019 Accession Number: [id number] / [id number] Procedure: XR - Femur 2V RT CPT Code: FULL RESULT: EXAM: RIGHT FEMUR RADIOGRAPHY EXAM DATE: 02/13/2019 05:28 PM. CLINICAL HISTORY: Right leg pain. COMPARISON: None. TECHNIQUE: 2 views. FINDINGS: Bones: No fracture or bone lesion is identified. Joints: Mild degenerative changes are seen in the hip and to a lesser degree in the knee. Alignment is preserved. Soft Tissues: Normal. No soft tissue swelling. IMPRESSION: No fracture or bone lesion identified. RADIA
== END 2019-02-13 16:53 | disposition home or self-care (01) ==
LOC: DI 16:52
PROVIDERS: ATTEND Nurse Practitioner Adult Health
DX: C34.90 Malignant neoplasm of unspecified part of unspecified bronchus or lung (principal); C79.51 Secondary malignant neoplasm of bone; M16.0 Bilateral primary osteoarthritis of hip

== ENCOUNTER 2019-03-20 13:02 | Outpatient (CLI) | payer MEDICARE, MEDICAID | END 2019-03-20 13:03 | disposition home or self-care (01) | LOC: DI 13:02 | PROVIDERS: ATTEND Internal Medicine Cardiovascular Disease | DX: I50.9 Heart failure, unspecified (principal); I48.91 Unspecified atrial fibrillation | CPT/HCPCS: 93306 ==

== ENCOUNTER 2019-03-20 13:03 | Outpatient (CLI) | payer MEDICARE, MEDICAID ==
[2019-03-20] MEDS ORDERED: BUFFERED LIDOCAINE 10 ML SYRINGE ONE (14:27)
== END 2019-03-20 13:04 | disposition home or self-care (01) ==
LOC: DI 13:03
PROVIDERS: ATTEND Nurse Practitioner Adult Health
DX: Z53.9 Procedure and treatment not carried out, unspecified reason (principal)

== ENCOUNTER 2019-03-23 14:22 | Inpatient (IN) | payer MEDICARE, MEDICAID ==
--- NOTE | 2019-03-23 15:03 | XRAY Report ---
Reason: sob Procedure Date: 03/23/2019 Accession Number: [id number] / [id number] Procedure: XR - Chest 1 View X-Ray CPT Code: 59523 FULL RESULT: EXAM: CHEST RADIOGRAPHY EXAM DATE: 03/23/2019 02:49 PM. CLINICAL HISTORY: Sob. COMPARISON: CHEST 1 VIEW 01/29/2019 1:36 PM CHEST W/ 03/13/2019 1:20 PM. TECHNIQUE: 1 view. FINDINGS: Cardiac leads overlie the chest. Tunneled left subclavian central venous Port-A-Cath appears to terminate near the confluence of the brachiocephalic veins. There is complete opacification of the right hemithorax. Visualized heart size is normal. The left lung pulmonary nodules described on the prior CT are faintly visible. No left-sided pleural effusion or pneumothorax visualized. IMPRESSION: Complete opacification of the right hemithorax, likely representing the combination of right lung atelectasis and pleural fluid recently described on the CT chest from 03/13/2019. Faintly visible left lung pulmonary nodules likely representing metastatic disease. RADIA
--- NOTE | 2019-03-23 15:17 | ED Physician Documentation ---
PD HPI DYSPNEA - Stated complaint Stated Complaint: SOB/CHEST PX - Chief complaint Chief Complaint: Resp - History obtained from History obtained from: Patient, Family - History of Present Illness Timing - onset: How many weeks ago (3) Timing - onset during: Rest Timing - duration: Weeks (3) Timing - details: Gradual onset, Still present Inciting event(s): Other (advancing lung cancer) Improved by: O2 Worsened by: Exertion, Laying flat, Coughing Associated symptoms: Cough, Hemoptysis, Bilateral edema Similar symptoms before: Diagnosis (stage IV lung CA) Recently seen: Clinic, Other - Additional information Additional information: 68-year-old female with 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 She has been treated for atrial fibrillation with rapid ventricular response as well. She is on Keytruda since December 2018 and her disease has progressed with this. She has tried some palliative radiation therapy and she stopped doing this as it was too much of a burden to go to [place] daily. She has been evaluated for thoracentesis both at [place] and here and she was discouraged from having this done as it does appear that this would be futile as there is no way for the air to get into the collapsed lung. The patient has accepted palliative treatment but she has not as yet considered hospice care. She does have a palliative care conference set up for Tuesday of the coming week. She has a child in [place] and one in the [facility]. Review of Systems Constitutional: denies: Fever Eyes: denies: Decreased vision Ears: denies: Ear pain Nose: denies: Rhinorrhea / runny nose, Congestion Throat: denies: Sore throat Cardiac: reports: Pedal edema. denies: Chest pain / pressure Respiratory: reports: Dyspnea GI: denies: Abdominal Pain, Vomiting PD PAST MEDICAL HISTORY - Past Medical History Past Medical History: Yes Cardiovascular: Congestive heart failure, Atrial fibrillation, Other Respiratory: Shortness of breath, Other Neuro: None Endocrine/Autoimmune: None GI: None PROTECTIVE SERVICES SOCIAL WORKER: None : None HEENT: None Psych: Depression, Anxiety Musculoskeletal: Osteoarthritis, Fatigue Derm: None - Past Surgical History Past Surgical History: Yes General: Other - Present Medications Home Medications: Ambulatory Orders Medication Instructions Recorded Confirmed Ipratropium/Albuterol [Combivent 1 puffs INH QID PRN 01/29/19 03/23/19 Respimat] LORazepam [Ativan] 1 mg SL Q4HR PRN #60 tablet 01/31/19 03/23/19 oxyCODONE/ACET 5/325 [Percocet 5 1 tab PO Q4HR PRN 02/28/19 03/23/19 mg/325 mg] Metoprolol Succinate [Toprol Xl] 50 mg PO DAILY 03/23/19 03/23/19 - Allergies Allergies/Adverse Reactions: Allergies Allergy/AdvReac Type Severity Reaction Status Date / Time No Known Drug Allergies Allergy Verified 03/23/19 14:25 - Social History Does the pt smoke?: No Smoking Status: Never smoker Does the pt drink ETOH?: Yes ETOH Use: Wine Does the pt have substance abuse?: No - Immunizations Immunizations are current?: No Immunizations: TDAP >10years/unknown - POLST Patient has POLST: No PD ED PE NORMAL - Vitals Vital signs reviewed: Yes - General General: Alert and oriented X 3, Well developed/nourished, Other (grunting for a breath) - HEENT HEENT: Atraumatic, PERRL, EOMI - Neck Neck: Supple, no meningeal sign, No bony TTP - Cardiac Cardiac: No murmur, Other (tachy) - Respiratory Respiratory: Other (respiratory distress with rapid shallow breating with absence of breath sounds on the right. ) - Abdomen Abdomen: Soft, Non tender - Back Back: No CVA TTP, No spinal TTP - Derm Derm: Normal color, Warm and dry, No rash - Extremities Extremities: No deformity, No edema - Neuro Neuro: Alert and oriented X 3, log hooker 2-12 intact, No motor deficit, No sensory deficit, Normal speech Eye Opening: Spontaneous Motor: Obeys Commands Verbal: Oriented GCS Score: 15 - Psych Psych: Normal affect, Other (mood is anxoius) Results - Vitals Vitals: Vital Signs - 24 hr 03/23/19 03/23/19 03/23/19 14:23 14:57 15:49 Temperature 36.7 C Heart Rate 131 H 128 H 131 H Respiratory 36 H 25 H 23 Rate Blood Pressure 112/96 H 115/83 H 120/95 H O2 Saturation 87 L 98 98 03/23/19 16:16 Temperature Heart Rate 130 H Respiratory 28 H Rate Blood Pressure 122/83 H O2 Saturation 98 Oxygen O2 Source Nasal cannula - Labs Labs: Laboratory Tests 03/23/19 03/23/19 15:10 15:10 WBC 26.8 H RBC 4.43 Hgb 12.2 Hct 37.1 MCV 83.7 MCH 27.6 MCHC 33.0 RDW 19.5 H Plt Count 458 H MPV 6.7 L Manual Slide Review Indicated Troponin I < 0.04 - Rads (name of study) chest 1 view Radiology: Prelim report reviewed (Impression: Complete opacification of the right hemithorax, likely representing accommodation of the right lung atelectasis and pleural fluid recently described on the CT chest from 03/13/2019. 2. Faintly visible left pulmonary nodules likely representing metastatic disease), EMP read indepedently, See rad report PD MEDICAL DECISION MAKING - ED course Complexity details: reviewed old records, reviewed results, re-evaluated patient, considered differential, d/w patient ED course: 68-year-old female with metastatic lung cancer failing immunotherapy is having increasing shortness of breath a tumor obstructing the mainstem bronchus and a large pleural effusion. I have personally reviewed the patient's CT scan demonstrating the obstruction of the right mainstem bronchus and I do not feel that thoracentesis would benefit the patient. I discussed these findings with the patient and her and the patient is quite anxious as her breathing is worsening day by day. I have discussed with the family the patient and her admission to the hospital for palliative care and to set up hospice.She and her have not previously considered hospice as yet as things have happened too fast. Dr. Diallo is consulted in the case and will admit this hypoxic patient for comfort care as palliative care and consultation for hospice services are not available over the weekend and this is a long weekend. Departure - Departure Disposition: 66 [facility] DC/Xfer Clinical Impression: Metastatic adenocarcinoma, Advanced care planning/counseling discussion Condition: Serious
[2019-03-23 15:26] LABS: BASOPHILS % (AUTO) 0.3 %; EOSINOPHILS % (AUTO) 4.4 %; HGB - HEMOGLOBIN 12.2 g/dL (12.0-16.0); LYMPHOCYTES % (AUTO) 1.9 %; MEAN CORPUSCULAR HEMOGLOBIN 27.6 pg (27.0-31.0); MEAN CORPUSCULAR VOLUME 83.7 fL (81.0-99.0); MEAN PLATELET VOLUME 6.7 fL (7.9-10.8); NEUTROPHILS % (AUTO) 88.4 %; PLT - PLATELET COUNT 458 10^3/uL (130-450); RED BLOOD COUNT 4.43 10^6/uL (4.20-5.40); RED CELL DISTRIBUTION WIDTH 19.5 % (12.0-15.0); WHITE BLOOD COUNT 26.8 x10^3/uL (4.8-10.8)
[2019-03-23 15:29] LABS: ABNORMAL LYMPHS % (MANUAL) 0 %
[2019-03-23] MEDS ORDERED: LORazepam 2 MG/ML VIAL IVP STA (15:36)
[2019-03-23] MEDS ORDERED: DEXAMETHASONE 10 MG/ML VIAL IVP STA (15:54)
[2019-03-23] MEDS ORDERED: LEVALBUTEROL 1.25 MG/3 ML NEB INH PRN (17:00)
[2019-03-23] MEDS ORDERED: TEMAZEPAM 15 MG CAPSULE PO PRN (17:01)
[2019-03-23] MEDS ORDERED: PROCHLORPERAZINE 10 MG/2 ML VIAL IVP PRN (17:01)
[2019-03-23] MEDS ORDERED: MORPHINE 2 MG/ML CARPUJECT IVP PRN (17:01)
[2019-03-23] MEDS ORDERED: ACETAMINOPHEN 325 MG TABLET PO PRN (17:01)
[2019-03-23] MEDS ORDERED: SODIUM CHLORIDE FLUSH 0.9% 10 ML SYRINGE IVP PRN (17:01)
[2019-03-23 17:10] LABS: BAND NEUTROPHILS % (MANUAL) 9 %; EOSINOPHILS # (MANUAL) 1.3 10^3/uL (0-0.7); LYMPHOCYTES # (MANUAL) 1.1 10^3/uL (1.5-3.5); LYMPHOCYTES % (MANUAL) 4 %; METAMYELOCYTES % (MANUAL) 2 %; MONOCYTES # (MANUAL) 1.1 10^3/uL (0.0-1.0); NEUTROPHILS # (MANUAL) 22.8 10^3/uL (1.5-6.6); NEUTROPHILS % (MANUAL) 76 %
[2019-03-23 17:11] LABS: DIFFERENTIAL COMMENT MANUAL DIFFERENTIAL; PLATELET ESTIMATE, MANUAL INCREASED (>450,000) (NORMAL); PLATELET MORPHOLOGY NORMAL APPEARANCE (NORMAL); RBC MORPHOLOGY (MULTIPLE) 1+ ANISOCYTOSIS (NORMAL)
[2019-03-23] MEDS ORDERED: MORPHINE SOL 10 MG/0.5 ML SYRINGE PO PRN (17:54)
[2019-03-23 18:22] LABS: ALBUMIN 2.5 g/dL (3.2-5.5); ALBUMIN/GLOBULIN RATIO 0.8 (1.0-2.2); BILIRUBIN,TOTAL 0.8 mg/dL (0.2-1.0); CALCIUM 8.5 mg/dL (8.5-10.3); CREATININE 0.4 mg/dL (0.4-1.0); TOTAL PROTEIN 5.7 g/dL (6.7-8.2)
[2019-03-23] MEDS ORDERED: MIN OIL/DIMETHICON/COCONUT OIL 92 GM TUBE TOP PRN (19:08)
[2019-03-23] MEDS ORDERED: GLYCOPYRROLATE 1 MG/5 ML VIAL SUBQ PRN (19:40)
[2019-03-23] MEDS ORDERED: CARBOXYMETHYLCELLULOSE OPHTH DROPS EACHEYE PRN (19:40)
[2019-03-23] MEDS: MORPHINE SOL 10 MG/0.5 ML SYRINGE PO PRN ×3 (19:51→23:57)
[2019-03-23] MEDS: FAMOTIDINE 20 MG TABLET PO SCH (21:42)
--- NOTE | 2019-03-23 21:57 | HISTORY & PHYSICAL EXAMINATION ---
DATE OF SERVICE: 03/23/2019 Physician: Kena Diallo MD HISTORY OF PRESENT ILLNESS: This is a 68-year-old white female with stage IV metastatic adenocarcinoma of the right lung with metastasis; a large right pleural effusion, as well as a brain mass metastasis. She has undergone three doses of immunotherapy through the [facility] [place] [place] oncology clinic here and then developed an obstruction of the right main stem bronchus and recently had three radiation courses for that. She developed more fatigue and felt that these were "too hard" and wanted no more radiation. She was offered to have a thoracentesis and presented for an elective procedure on 03/20/2019, however, the proceduralist felt that it would be unhelpful, as there would be no lung reexpansion because of the obstructed bronchus. She did not have the procedure. Since that appointment, she has worsened quickly; in the last three to five days, she has become orthopneic and sleeps bolt upright, she finds it too difficult to walk several steps to go to the bathroom, and now uses a cane, but has to stop to catch her breath. She came to the emergency room today because of this severe orthopnea and dyspnea. There was a mention of chest pain with that, but the bigger complaint was that of the marked shortness of breath. She was noted to have hypoxia, desaturating on room air. Chest x-ray found an entire whiteout of the right lung. The emergency room doctor told me that there was to be a first palliative care appointment approximately five days from now at an elective office visit. I reached out to oncology; we discussed her history and current status and whether oncology had any further plans. The covering oncologist, who spoke to me, did not know the patient, to suggest any new management. The nurses have tried to access her port for IV administration of medication and withdrawing blood, but the port is currently not working, it may be kinked. PAST MEDICAL HISTORY 1. Atrial fibrillation with a rapid rate, for this she was admitted approximately three weeks ago, placed on digoxin and then changed to beta karon. 2. Pleural effusion, presumably malignant. 3. Lung cancer, stage IV with brain metastasis. 4. Depression and anxiety. 5. Osteoarthritis. 6. Leg edema of unknown etiology, possibly from CHF, but no recent workup has confirmed that yet. MEDICATIONS AT HOME 1. Combivent inhaler q.i.d. p.r.n. 2. Ativan sublingual q.4 hours p.r.n. 3. Percocet 5 mg/325 mg q.4 hours p.r.n. 4. Toprol-XL 50 mg daily. ALLERGIES: NONE. REVIEW OF SYSTEMS: There has been no fever, she has no cough or sputum production. She denies any anginal type chest pain or radiation of pain. She did have shingles over the right buttock area approximately a month ago, they are now healed. She has no further pain in that area. The patient has a POLST signed which indicates she wants to be a DNR/DNI. The patient has told her that she also wants no more blood draws. SOCIAL HISTORY: The patient is a nonsmoker, who never smoked, drinks no alcohol, no history of drug use. FAMILY HISTORY: No inherited diseases. PHYSICAL EXAMINATION GENERAL: Cachectic white female. She is sitting bolt upright in bed, propped up on pillows, her head is bent forward since she is "trying to take a nap." She appears in moderate-severe respiratory distress. VITAL SIGNS: Blood pressure 130/90, heart rate 130-140 and regular, respiratory rate 28, O2 saturation on 5 liters nasal cannula is 98%. HEENT: Reveals slight alopecia. She has temporal wasting. She has pallor. Her oral mucosa is dry. NECK: No JVD. CHEST: Diminished breath sounds in the entire right side. The left side has good air movement. There are no wheezes or rales. HEART: Tachycardic heart sounds, too rapid to auscultate for murmur or gallop. ABDOMEN: Distended, cannot rule out hepatomegaly or ascites. There is no tenderness. Decreased bowel sounds. EXTREMITIES: 2+ edema to the knees. There is no clubbing or cyanosis. Her feet have coolness, but good capillary refill. She has ecchymosis of the left great toe. NEUROLOGIC: She is slightly lethargic since she just received morphine, but awakens completely and answers appropriately, although she is dyspneic and therefore her sentences are short. She is moving all extremities. She is able to bear her weight, but unable to stand up on her own. LABORATORY DATA: Sodium 125, potassium 4.6, BUN 16, creatinine 0.4. Normal liver tests. Troponin not detectable. BNP 182. Albumin 2.5. White blood count 26.8, hemoglobin 12.2 with MCV of 83, platelet count 458. No INR was done. No urinalysis was done. CHEST X-RAY: Cardiomegaly, right side schuyler out from lung atelectasis and pleural fluid and consistent with a CT scan that was done on 03/13/2019. There are faintly visible left lung pulmonary nodules representing metastatic disease. She has a subclavian central venous Port-A-Cath near the confluence of the brachiocephalic veins. IMPRESSION 1. Respiratory failure with hypoxia. 2. Pleural effusion on the right. 3. Atelectatic lung on the right due to bronchus occluding the right mainstem. 4. Lung cancer, stage IV. 5. Hyponatremia. 6. Tachycardia. 7. History of atrial fibrillation. PLAN: Admit the patient for management of her hypoxia, tachycardia and pain/discomfort. Continue supplemental oxygen, nebulizer treatments, and pulmonary toilet, with an RT referral. I will keep her on the metoprolol in order to treat the tachycardia. Begin with oral or sublingual Morphine (Roxanol) to treat the dyspnea, and use IV morphine if the Port-A-Cath access is available. Consider Lasix, for gentle diuresis of the pleural fluid. Because she has not yet spoken to palliative care or hospice care, I will initiate the conversation weather she wants to be transitioned to comfort care orders. She wants no more blood draws, which is consistent with this. Continue with the DNR status. Aranda catheter has been offered to the patient, she has refused this and wants to use the bedpan or bedside commode at this time. Palliative care consult will be ordered officially. Hospice referral will be requested, but, both of these may not be available over the weekend as this is Tuesday night and we are about to enter a three day weekend (). DEEP VENOUS THROMBOSIS PROPHYLAXIS: None, because she is potentially having end of life care under hospice. CODE STATUS: DNR. ATTESTATION: The patient is expected to be discharged or transferred to another facility within 96 hours: Yes. TD: 03/23/2019 20:01 WILTON
[2019-03-23] MEDS: LORazepam 1 MG TABLET SL PRN (22:00)
[2019-03-23] MEDS: SODIUM CHLORIDE FLUSH 0.9% 10 ML SYRINGE IVP SCH (23:18)
[2019-03-23] MEDS ORDERED: ONDANSETRON ODT 4 MG TABLET TL PRN (23:55)
[2019-03-24] MEDS ORDERED: TEMAZEPAM 15 MG CAPSULE PO PRN (00:35)
[2019-03-24] MEDS: MORPHINE SOL 10 MG/0.5 ML SYRINGE PO PRN ×8 (04:01→18:54)
[2019-03-24] MEDS: LORazepam 1 MG TABLET SL PRN ×4 (05:59→23:46)
[2019-03-24] MEDS: oxyCODONE 5 MG TABLET PO PRN ×2 (06:00→09:59)
[2019-03-24] MEDS: FAMOTIDINE 20 MG TABLET PO SCH (08:16)
[2019-03-24] MEDS: METOPROLOL SUCCINATE 50 MG TABLET PO SCH ×2 (08:16→08:17)
[2019-03-24 08:18] VITALS: BP 139/86
[2019-03-24] MEDS: SODIUM CHLORIDE FLUSH 0.9% 10 ML SYRINGE IVP SCH ×2 (08:22→15:38)
[2019-03-24] MEDS ORDERED: POLYETHYLENE GLYCOL 3350 17 GM PACKET PO SCH (09:00)
--- NOTE | 2019-03-24 12:45 | PROVIDER PROGRESS NOTE ---
Assessment/Plan - Problem List (1) Metastatic adenocarcinoma Assessment/Plan: The patient needs inpatient Palliative Care until Hospice can be reached and able to accept her. SW will reach out to other Hospice companies, other than [facility], who do not accept patients on weekends, apparently. She is now more comfortable than at admission yesterday afternoon, is without secretions after 2 doses of Robinul, is in an upright position, got Ativan several times for anxiety and is now on scheduled Roxinol q1h (since her Port-A-Cath does not work, will not withdraw). (2) Tachycardia Assessment/Plan: Her pre-hospital Metoprolol will be stopped. No further VS will be checked. (3) Hyponatremia Assessment/Plan: No further blood draws planned. - Current Meds Current Meds: Current Medications Generic Name Dose Route Start Last Admin Trade Name Freq PRN Reason Stop Dose Admin Famotidine 20 mg 03/23/19 21:00 03/24/19 08:16 Pepcid PO 20 mg BID NEO Administration Levalbuterol HCl 1.25 mg 03/23/19 17:00 03/23/19 17:50 Xopenex INH 1.25 mg Q4H PRN Administration Shortness of Air/Wheezing Lorazepam 1 mg 03/23/19 16:57 03/24/19 09:58 Ativan SL 1 mg Q4HR PRN Administration anxiety/insomnia Metoprolol Succinate 50 mg 03/24/19 09:00 03/24/19 08:17 Toprol Xl PO 50 mg DAILY NEO Administration Morphine Sulfate 10 mg 03/23/19 19:29 03/24/19 10:22 Roxanol PO 10 mg Q1HR PRN Administration PAIN Ondansetron HCl 4 mg 03/23/19 23:55 03/24/19 01:19 Zofran Odt TL 4 mg Q4HR PRN Administration Nausea / Vomiting Oxycodone HCl 5 mg 03/23/19 16:58 03/24/19 09:59 Roxicodone PO 5 mg Q4HR PRN Administration PAIN Polyethylene Glycol 17 gm 03/24/19 09:00 03/24/19 08:22 Miralax PO Not Given DAILY NEO Sodium Chloride 10 ml 03/24/19 01:00 03/24/19 08:22 Normal Saline Flush 0.9% IVP Not Given 0100,0900,1700 NEO Temazepam 15 mg 03/24/19 00:35 03/24/19 01:19 Restoril PO 15 mg QPM PRN Administration Insomnia - Lab Result Fish Bone Diagrams: 03/23/19 15:10 03/23/19 15:10 - Additional Planning My Orders: My Active Orders 03/23/19 16:57 LORazepam [Ativan] 1 mg SL Q4HR PRN 03/23/19 16:58 oxyCODONE [Roxicodone] 5 mg PO Q4HR PRN 03/23/19 17:00 Nebulizer/MDI Tx. [RC] .QID Resp Teach Nebulizer/MDI [RC] .ONCE Levalbuterol [Xopenex] 1.25 mg INH Q4H PRN 03/23/19 17:01 Activity Orders [RC] Q2HR IO [RC] IOSHIFT Initiate Bowel Care Protocol [RC] .protocol Initiate Bronchodialator Danielle [RC] .PROTOCOL Initiate Line Care Protocol [RC] .protocol Initiate Line Care Protocol [RC] QSHIFT Initiate Lung Inflation Protoc [RC] .PROTOCOL Initiate Personal Care Protoco [RC] .protocol Initiate Secretion Clearance P [RC] .PROTOCOL Oxygen Therapy [RC] Routine Vital Signs [RC] PRN Acetaminophen [Tylenol] 650 mg PO Q4HR PRN Prochlorperazine Inj [Compazine Inj] 10 mg IVP Q6HR PRN Sodium Chloride Flush 0.9% [Normal Saline Flush 0.9%] 10 ml IVP PRN PRN Code Status [OTHERS] Routine Condition of Patient [OTHERS] Routine DVT Prophylaxis [OTHERS] Routine 03/23/19 17:02 IV Insert [RC] .ONCE 03/23/19 17:07 Social Work Consult [CONS] Routine 03/23/19 19:08 Min Oil/Dimeth/Coconut Oil Crm [Cavilon] 1 applic TOP PRN PRN 03/23/19 21:00 Famotidine [Pepcid] 20 mg PO BID 03/24/19 01:00 Sodium Chloride Flush 0.9% [Normal Saline Flush 0.9%] 10 ml IVP 0100,0900,1700 03/24/19 09:00 Metoprolol Succinate [Toprol Xl] 50 mg PO DAILY Polyethylene Glycol 3350 [Miralax] 17 gm PO DAILY Subjective - Subjective Patient Reports: Resting Comfortably Nursing Reports: Other (The requested to give her Morphine on schedule, so that she wouldn't awaken with air hunger.) Objective Vital Signs: Vital Signs - 24 hr 03/23/19 03/23/19 03/23/19 14:23 14:57 15:49 Temperature 36.7 C Heart Rate 131 H 128 H 131 H Heart Rate [ Apical] Heart Rate [ Brachial] Respiratory 36 H 25 H 23 Rate Blood Pressure 112/96 H 115/83 H 120/95 H Blood Pressure [Left Brachial artery] O2 Saturation 87 L 98 98 03/23/19 03/23/19 03/23/19 16:16 17:02 17:52 Temperature 35.5 C L Heart Rate 130 H 76 Heart Rate [ Apical] Heart Rate [ 144 H Brachial] Respiratory 28 H 25 H 22 Rate Blood Pressure 122/83 H Blood Pressure 129/96 H [Left Brachial artery] O2 Saturation 98 94 03/23/19 03/24/19 03/24/19 22:36 08:15 08:17 Temperature 94.7 C H Heart Rate Heart Rate [ 120 H Apical] Heart Rate [ 110 H 66 Brachial] Respiratory 22 12 Rate Blood Pressure Blood Pressure 139/86 H [Left Brachial artery] O2 Saturation 97 97 03/24/19 09:15 Temperature 36.5 C Heart Rate Heart Rate [ Apical] Heart Rate [ Brachial] Respiratory Rate Blood Pressure Blood Pressure [Left Brachial artery] O2 Saturation Oxygen O2 Source Nasal cannula I&O (Last 24 Hrs): Intake and Output Totals x24h 03/22/19 03/23/19 03/24/19 23:59 23:59 23:59 Intake Total 50 Output Total 225 250 Balance -175 -250 General: Mild distress, Other (Sedated. Sleeping bolt upright with her head supported on a pillow.) HEENT: Other (Mucosa dry, n.c. oxygen on.) Neck: Supple Neuro: Other (Sedated) Cardiovascular: Regular rate Respiratory: Other (No rhonchi, R side without breath sounds) Abdomen: Soft Extremities: Other (2+ edema to knees, cool extremities.) - Results Results: Laboratory Results WBC 26.8 x10^3/uL (4.8-10.8) H 03/23/19 15:10 RBC 4.43 10^6/uL (4.20-5.40) 03/23/19 15:10 Hgb 12.2 g/dL (12.0-16.0) 03/23/19 15:10 Hct 37.1 % (37.0-47.0) 03/23/19 15:10 MCV 83.7 fL (81.0-99.0) 03/23/19 15:10 MCH 27.6 pg (27.0-31.0) 03/23/19 15:10 MCHC 33.0 g/dL (32.0-36.0) 03/23/19 15:10 RDW 19.5 % (12.0-15.0) H 03/23/19 15:10 Plt Count 458 10^3/uL (130-450) H 03/23/19 15:10 MPV 6.7 fL (7.9-10.8) L 03/23/19 15:10 Neut # (Auto) Not Reportable 03/23/19 15:10 Lymph # (Auto) Not Reportable 03/23/19 15:10 [place] # (Auto) Not Reportable 03/23/19 15:10 Eos # (Auto) Not Reportable 03/23/19 15:10 Baso # (Auto) Not Reportable 03/23/19 15:10 Absolute Nucleated RBC Not Reportable 03/23/19 15:10 Total Counted 100 03/23/19 15:10 Band Neuts % (Manual) 9 % (0-10) 03/23/19 15:10 Abnorm Lymph % (Manual) 0 % 03/23/19 15:10 Metamyelocytes % 2 % (-0) H 03/23/19 15:10 Nucleated RBC % Not Reportable 03/23/19 15:10 Neutrophils # (Manual) 22.8 10^3/uL (1.5-6.6) H 03/23/19 15:10 Lymphocytes # (Manual) 1.1 10^3/uL (1.5-3.5) L 03/23/19 15:10 Monocytes # (Manual) 1.1 10^3/uL (0.0-1.0) H 03/23/19 15:10 Eosinophils # (Manual) 1.3 10^3/uL (0-0.7) H 03/23/19 15:10 Basophils # (Manual) 0.0 10^3/uL (0-0.1) 03/23/19 15:10 Differential Comment MANUAL DIFFERENTIAL 03/23/19 15:10 Manual Slide Review Indicated 03/23/19 15:10 Platelet Estimate INCREASED (>450,000) (NORMAL) 03/23/19 15:10 Platelet Morphology NORMAL APPEARANCE (NORMAL) 03/23/19 15:10 RBC Morph Micro Appear 1+ ANISOCYTOSIS (NORMAL) 03/23/19 15:10 Sodium 125 mmol/L (135-145) L 03/23/19 15:10 Potassium 4.6 mmol/L (3.5-5.0) 03/23/19 15:10 Chloride 85 mmol/L (101-111) L 03/23/19 15:10 Carbon Dioxide 28 mmol/L (21-32) 03/23/19 15:10 Anion Gap 12.0 (6-13) 03/23/19 15:10 BUN 16 mg/dL (6-20) 03/23/19 15:10 Creatinine 0.4 mg/dL (0.4-1.0) 03/23/19 15:10 Estimated GFR (MDRD) 158 (>89) 03/23/19 15:10 Glucose 120 mg/dL (70-100) H 03/23/19 15:10 Calcium 8.5 mg/dL (8.5-10.3) 03/23/19 15:10 Total Bilirubin 0.8 mg/dL (0.2-1.0) 03/23/19 15:10 AST 18 IU/L (10-42) 03/23/19 15:10 ALT 26 IU/L (10-60) 03/23/19 15:10 Alkaline Phosphatase 87 IU/L (42-121) 03/23/19 15:10 Troponin I < 0.04 ng/mL (<0.49) 03/23/19 15:10 B-Natriuretic Peptide 182 pg/mL (5-100) H 03/23/19 15:10 Total Protein 5.7 g/dL (6.7-8.2) L 03/23/19 15:10 Albumin 2.5 g/dL (3.2-5.5) L 03/23/19 15:10 Globulin 3.2 g/dL (2.1-4.2) 03/23/19 15:10 Albumin/Globulin Ratio 0.8 (1.0-2.2) L 03/23/19 15:10 - Procedures Procedures: Procedures FLUOROSCOPY OF SUP VENA CAVA USING L OSM CONTRAST, GUIDANCE (01/29/19) INSERTION OF INFUSION DEV INTO SUP VENA CAVA, PERC APPROACH (01/29/19)
--- NOTE | 2019-03-24 12:53 | ADVANCE CARE PLANNING NOTE ---
Advance Care Planning - Date/Time Date: 03/24/19 Time: 11:30 - Purpose of encounter Text: To determine the plan for transitioning her to Palliative Care vs Hospice Care - Parties in attendance Parties in attendance: I spoke to the in a separate room, away from the patient - Decisional capacity Decisional capacity of: She was anxious, in moderate-severe respiratory distress until this a.m. when her Morphine to started to be dosed q1h, which made her able to sleep comfortably. She is therefore not able to speak or make decisions currently. The is her surrogate. - Subjective/Patient's story Subjective/Patient's story: She developed lung CA, has mets, and had a rapid decline in respiratory status over the last 4 days. The last 3 days, after declining any further radiation therapy, she has been orthopneic, restless, gets severe dyspnea walking with a cane and needs to sit and rest after 3 steps, os too weak to stand up on her own, has eaten only jello, chicken soup, Ensure and liquids. Since last night, she refuses any sips of liquids. - Objective/Medical story Objective/Medical Story: The patient has adenoCA of the lung, stage 4, and just had immunotherapy then 3 radiation treatments to the lungs, for R main stem bronchus blocked and R lung atelectasis and R lung pleural effusion that a thoracentesis will not help. She came to the ER is respiratory failure, sitting bolt upright, tachycardic, and XRay showed complete R lung opacification. Morphine was ordered iv, but her Port-A-Cath does not work. Overnight, she needed Ativan, Robinul and sl Roxinol. There is no further management that can salvage her. She is now on palliative Care. The understands that she is failing rapidly and is already a Hospice candidate. - Goals of Care Goals of care determinations: The patient had stated last night that she wants no more blood draws. Today the requested no more BP checks. She will be given palliative care for her respiratory failure, until Hospice accepts her. She wanted to go home to , according to the . - Plan Plan: Paliative Care for respiratory failure due to the lung CA. A Comfort Care bundle was ordered by the Dining Services Director last night. Her pre-hospital meds will be stopped. A Aranda is encouraged for patient comfort. Hospice referral, to be accepted by Hospice to at home in dignity. - Code Status Code Status: Do Not Attempt Resuscitation - Time Spent on Advance Care Planning Time spent on advance care plannin min
[2019-03-25] MEDS: MORPHINE SOL 10 MG/0.5 ML SYRINGE PO PRN ×3 (00:21→09:55)
--- NOTE | 2019-03-25 09:06 | Discharge Plan ---
Discharge Plan Disposition: 50 Hospice/Home DC/Xfer Condition: Critical Prescriptions: clonazePAM [Clonazepam] 2 mg PO Q4H PRN #30 tab.rapdis PRN Reason: Anxiety Glycopyrrolate 1 mg PO TID PRN #20 tablet PRN Reason: Excessive Secretions Haloperidol Lactate [Haloperidol Lactate (Oral soln bottle)] 1 - 2 mg PO Q2H PRN #15 ml PRN Reason: Anxiety LORazepam [Lorazepam INTENSOL] 1 - 2 mg PO Q2H PRN #30 ml PRN Reason: Dyspnea Morphine Sulfate [Morphine Sulf Oral (Roxanol)] 10 - 20 mg PO Q1H PRN #60 ml PRN Reason: Pain/Dyspnea No Smoking: If you smoke, Please STOP! Call for help.
[2019-03-25] MEDS: LORazepam 1 MG TABLET SL PRN (10:20)
--- NOTE | 2019-03-25 20:13 | DISCHARGE SUMMARY ---
Physician: Kena Diallo MD DATE OF ADMISSION: 03/23/2019 DATE OF DISCHARGE: 03/25/2019 HISTORY OF PRESENT ILLNESS: This is a 68-year-old white female with a history of stage IV lung cancer with metastasis to the brain, and with a mass occluding her right main stem bronchus and a large right pleural effusion. She has undergone chemotherapy recently and also had 3 courses of radiation therapy recently for the mass obstructing the right main stem bronchus, but declined to have any further because these were "too hard." She was offered a thoracentesis and came for that appointment on 03/20/2019, but the proceduralist felt that it would not help, as there would be no lung reexpansion because of the obstructed bronchus. She went home without the procedure, and over those 3 days quickly worsened in terms of orthopnea. She needed to sleep bolt upright, was dyspneic even with walking several steps. She began to have decreased appetite, was only taking soups, liquids and Jell-O. She presented to the emergency room with extreme shortness of breath. She was noted to have hypoxia on room air, leg edema and chest x-ray found an entire whiteout of the right lung. Patient was admitted for management of respiratory failure. The patient also had recent rapid atrial fibrillation for which she was on beta [place]. Her admission heart rate now was 130 with a blood pressure of 112/96. HOSPITAL COURSE AND DISCHARGE DIAGNOSES 1. Metastatic adenocarcinoma of the lung. The plan was to have gentle diuresis of the pleural effusion and symptomatic management of her dyspnea using morphine, treatment of oral secretions and continued medical management of her tachycardia. After just several hours of admission, the patient stated that she wanted no more blood draws. Her also requested no interruptions to take vital signs either, and patient turned down all her diet. An advance care planning meeting was done with the , and it was determined that she would not await the palliative care consult, which was to be done as an outpatient next week, and she would be transitioned directly to hospice. The social worker palliative care was able to have her accepted by [facility]. She was put on comfort care measures using liquid morphine, lorazepam, Ropinirole. With this management, she mostly slept, still in the upright position, propped up on pillows. She was discharged on 03/25/2019 to her home under the care of Hospice in poor condition. 2. Tachycardia. This was felt to be from her respiratory failure, hypoxia, generalized distress and probable volume depletion. Her metoprolol was stopped at the point where hospice care was planned and she was kept on comfort care measures only. 3. Hyponatremia. Patient had admission labs showing a sodium of 125. No further lab work was done after this. 4. Comfort care only. As described above. ALLERGIES: NONE. MEDICATIONS AT DISCHARGE 1. Morphine sulfate oral solution 10-20 mg p.r.n. dyspnea. 2. Lorazepam oral solution 1-2 mg p.r.n. agitation. 3. Haloperidol 1-2 mg p.r.n. terminal agitation. 4. Glycopyrrolate 1 mg t.i.d. p.r.n. secretions. 5. Clonazepam sublingual lozenges 2 mg p.r.n. terminal anxiety. CONDITION AT DISCHARGE: Poor, as described above, no vitals or any further physical exams was done. CODE STATUS: DO NOT RESUSCITATE. Time required to complete this entire discharge, medication orders, dictation: Thirty minutes. cc: Rosalie Rose, Castillo Goldman MD, TD: 03/25/2019 19:04 [id number]
== END 2019-03-25 10:30 | disposition hospice, home (50) | DRG 180 ==
LOC: ED 14:22 → MS2 16:24
PROVIDERS: ADMIT Internal Medicine; ATTEND Internal Medicine
DX: C34.91 Malignant neoplasm of unspecified part of right bronchus or lung (principal); J90 Pleural effusion, not elsewhere classified; R06.03 Acute respiratory distress; J96.91 Respiratory failure, unspecified with hypoxia; C79.31 Secondary malignant neoplasm of brain; J91.0 Malignant pleural effusion; R09.02 Hypoxemia; C78.02 Secondary malignant neoplasm of left lung; J98.11 Atelectasis; E87.1 Hypo-osmolality and hyponatremia; R64 Cachexia; I50.9 Heart failure, unspecified; R53.83 Other fatigue; F32.9 Major depressive disorder, single episode, unspecified; F41.9 Anxiety disorder, unspecified; R00.0 Tachycardia, unspecified; M19.90 Unspecified osteoarthritis, unspecified site; E86.9 Volume depletion, unspecified; R60.0 Localized edema; Z66 Do not resuscitate; Z68.25 Body mass index [BMI] 25.0-25.9, adult; Z51.5 Encounter for palliative care; I48.91 Unspecified atrial fibrillation; Z79.51 Long term (current) use of inhaled steroids; Z92.3 Personal history of irradiation; Z79.891 Long term (current) use of opiate analgesic; Z79.899 Other long term (current) drug therapy
CPT/HCPCS: 36415; 71045; 80053; 83880; 84484; 85025; 93005; 94640; 96374; 96375; 99283; 99284; A9270; J2060; J8499; Q0162

== ENCOUNTER 2019-03-25 10:30 | Outpatient (CLI) | payer MEDICARE, MEDICAID | END 2019-03-25 10:31 | disposition hospice, home (50) | LOC: EMS 10:30 | PROVIDERS: ATTEND Surgery | DX: R06.00 Dyspnea, unspecified (principal); R53.83 Other fatigue | CPT/HCPCS: A0425; A0428 ==